=== PATIENT | male | born 1990 | race Two or more races ===

== ENCOUNTER 2018-02-10 15:23 | Emergency (ER) | payer SELFPAY ==
[~2018-02-10] VITALS: Ht 170.2 cm; Wt 70.0 kg
[2018-02-10 15:52] VITALS: BP 128/72
== END 2018-02-10 17:15 | disposition home or self-care (01) ==
LOC: EMS 15:25
DX: K08.89 Other specified disorders of teeth and supporting structures (principal); R03.0 Elevated blood-pressure reading, without diagnosis of hypertension; F17.210 Nicotine dependence, cigarettes, uncomplicated
CPT/HCPCS: 99283